=== PATIENT | male | born 1950 | race Caucasian/White ===

== ENCOUNTER 2018-01-13 09:20 | Outpatient (CLI) | payer OTHER | END 2018-01-13 17:18 | disposition home or self-care (01) | LOC: NUCLEAR 09:20 | DX: I11.9 Hypertensive heart disease without heart failure (principal) ==

== ENCOUNTER → 2020-10-30 | Outpatient (CLI) | payer OTHER | END | disposition home or self-care (01) | LOC: PPH VACUNA → EDBD | PROVIDERS: ATTEND Emergency Medicine Pediatric Emergency Medicine | DX: Z23 Encounter for immunization (principal) ==